=== PATIENT | female | born 1960 | race Two or more races ===

== ENCOUNTER 2020-07-21 12:30 | Emergency (ER) | payer OTHER, MEDICAID ==
[~2020-07-21] VITALS: Ht 160 cm; Wt 72.6 kg
[2020-07-21 12:36] VITALS: BP 101/70
== END 2020-07-21 13:19 | disposition home or self-care (01) ==
LOC: ER 12:30
DX: S82.831D Other fracture of upper and lower end of right fibula, subsequent encounter for closed fracture with routine healing (principal); X58.XXXD Exposure to other specified factors, subsequent encounter